=== PATIENT | female | born 1975 | race Caucasian/White ===

== ENCOUNTER 2018-01-28 06:40 | Day surgery (SDC) | payer OTHER ==
[2018-01-28] MEDS ORDERED: Midazolam 2 MG/2 ML VIAL ONE ×2 (10:01→14:14)
[2018-01-28] MEDS ORDERED: Propofol 10 mg/ml Inj (20 ML) ONE ×2 (10:01→14:25)
[2018-01-28] MEDS ORDERED: cefOXitin IV 1 gm in Dextrose 1 GM/50 ML BAG IVPB ONE (10:36)
[2018-01-28] MEDS ORDERED: HYDROmorphone 0.5 mg/0.5 ml ISec IVP PRN (10:55)
--- NOTE | 2018-01-28 12:44 | PCM.SURG1 ---
Surgeon's Initial Post Op Note - Surgeon's Notes Surgeon: dr ashton [employer] Consultant: none Type of Anesthesia: General LMA Pre-Operative Diagnosis: 42 yr endometrial polyp Operative Findings: see the op reort Post-Operative Diagnosis: same Operation Performed: myasure/d&c,hyesterscopy Specimen/Specimens Removed: ecc. emc. endometrail polyp Estimated Blood Loss: EBL {In ML}: 20 Blood Products Given: N/A Drains Used: No Drains Post-Op Condition: Good Date of Surgery/Procedure: 01/28/18 Time of Surgery/Procedure: 13:00
[2018-01-28 12:59] VITALS: BP 107/66; PULSE 61; RESP 16; TEMP 97.5; O2SAT 100
--- NOTE | 2018-02-02 07:48 | OP ---
PROCEDURE DATE: 01/28/2018 PREOPERATIVE DIAGNOSIS: A 42-year-old 2, para 2 with endometrial polyps. POSTOPERATIVE DIAGNOSIS: A 42-year-old 2, para 2 with endometrial polyps. PROCEDURE PERFORMED: MyoSure dilation and curettage, . SPECIMEN: ECC, EMC, endometrial polyp. ESTIMATED BLOOD LOSS: 20 mL. SURGEON: Eagle Brandon MD SUPPLY ANALYST: None. ANESTHESIOLOGIST: Dr. Nichols. DESCRIPTION OF PROCEDURE: After informed consent was obtained, the patient was brought to the operating room where general anesthesia was given. The patient was prepped and draped in a normal sterile fashion. Examination found the uterus to be 8 weeks' size. No pelvic or adnexal masses. Anterior lip of the cervix was grasped with a tenaculum, gentle dilatation of the cervix was done. MyoSure anterior lip of the posterior wall of the uterus, picture was taken, and decision was to use a MyoSure. MyoSure was used to take out the polyp. Then the sharp curettage from all the way of the anterior wall of the uterus was done and ECC was done picture was taken. Then the tenaculum was taken out of the anterior lip of the cervix. The patient tolerated the procedure well. Lap, sponge, and instruments were corrected x2. Eagle Toledo MD
== END 2018-01-28 13:10 | disposition home or self-care (01) ==
LOC: C.OPSURG 06:40
PROVIDERS: ATTEND Obstetrics & Gynecology
DX: N84.0 Polyp of corpus uteri (principal)
CPT/HCPCS: 58558; 88305; J0694; J1170; J2250; J2405; J2704; J3010